=== PATIENT | male | born 2000 ===

== ENCOUNTER 2018-12-26 23:20 | Emergency (ER) | payer SELFPAY ==
[2018-12-27] MEDS ORDERED: Ondansetron ODT 4 MG TAB ONE (01:10)
[2018-12-27] MEDS ORDERED: Ondansetron ODT 8 MG TAB ONE (01:11)
== END 2018-12-27 01:41 | disposition home or self-care (01) ==
LOC: ERS 23:20
DX: K92.0 Hematemesis (principal); F10.129 Alcohol abuse with intoxication, unspecified; K22.6 Gastro-esophageal laceration-hemorrhage syndrome
CPT/HCPCS: 82271; 99284; Q0162